=== PATIENT | female | born 1990 | race Caucasian/White ===

== ENCOUNTER 2019-06-12 13:26 | Emergency (ER) | payer MEDICAID ==
[~2019-06-12] VITALS: Ht 149.9 cm; Wt 50.1 kg
[2019-06-12 13:29] VITALS: BP 148/79
--- NOTE | 2019-06-12 13:37 | NUR ---
Note undone in EDM - 06/12/19 at 1346 by MED1 BIB SELF. AAO X4 C/O UNPROVOKED, CONTINUOUS, NON RADIATING MID CHEST PAIN, DIZZINESS, SOB 9/10 X 1 HR AGO. PT STATES THAT IT HAPPENED WHEN SHE WAS AT WORK AND SHE STARTED HAVING SOB. FULL CLEAR SPEECH. NO FACIAL ASYMMETRY. PT AMBULATED WITH STEADY GAIT. PMH: DENIES. MED RX: ZPACK ANTIBIOTIC THERAPY FOR THROAT INFECTION . PATIENT POSITIONED FOR COMFORT; HOB ELEVATED; BEDRAILS UP X1; BED DOWN. ER MADE AWARE OF PT STATUS.
--- NOTE | 2019-06-12 13:38 | NUR ---
PT AMBULATED TO BED 3 WITH STEADY GAIT. URINE CUP PROVIDED
--- NOTE | 2019-06-12 13:39 | NUR ---
PT AMBULATED TO THE BATHROOM WITH STEADY GAIT.
--- NOTE | 2019-06-12 13:41 | NUR ---
PT AMBULATED TO ROOM WITH STEADY GAIT. URINE SPECIMEN OBTAINED.
--- NOTE | 2019-06-12 13:42 | NUR ---
BIB SELF. AAO X4 C/O UNPROVOKED, CONTINUOUS, NON RADIATING MID CHEST PAIN, DIZZINESS, SOB 9/10 X 1 HR AGO. PT STATES THAT IT HAPPENED WHEN SHE WAS AT WORK AND SHE STARTED HAVING SOB. FULL CLEAR SPEECH. NO FACIAL ASYMMETRY. PT AMBULATED WITH STEADY GAIT. PMH: DENIES. MED RX: ZPACK ANTIBIOTIC THERAPY FOR THROAT INFECTION . PATIENT POSITIONED FOR COMFORT; HOB ELEVATED; BEDRAILS UP X1; BED DOWN. ER MD MADE AWARE OF PT STATUS.
--- NOTE | 2019-06-12 13:57 | NUR ---
Patient being evaluated by DR MALDONADO at bedside.
[2019-06-12] MEDS ORDERED: IBUPROFEN 600 MG TAB PO ONE (14:10)
[2019-06-12 14:37] LABS: BASOPHILS % (AUTO) 0.6 % (0.0-2.0); EOSINOPHILS % (AUTO) 0.3 % (0.0-4.0); HEMATOCRIT 41.6 % (36-48); HEMOGLOBIN 14.4 g/dL (12.0-16.0); LYMPHOCYTES # (AUTO) 1.8 K/uL (2.5-16.5); LYMPHOCYTES % (AUTO) 34.7 % (20.5-51.1); MEAN CORPUSCULAR HEMOGLOBIN 30 pg (27-31); MEAN CORPUSCULAR HGB CONC 35 g/dL (33-37); MEAN CORPUSCULAR VOLUME 87.8 fL (80-94); MONOCYTES # (AUTO) 0.3 K/uL (0.8-1.0); MONOCYTES % (AUTO) 5.4 % (1.7-9.3); PLATELET COUNT (AUTO) 203 K/uL (140-450); RED BLOOD CELL COUNT(AUTO) 4.74 MIL/uL (4.20-5.40); RED CELL DISTRIBUTION WIDTH 13.8 % (11.6-13.7); WHITE BLOOD COUNT (AUTO) 5.1 K/uL (4.8-10.8)
[2019-06-12 14:57] LABS: ANION GAP 16.3 (8-16); CARBON DIOXIDE 23.5 mmol/L (21-32); CREATININE 0.7 mg/dL (0.6-1.3); POTASSIUM 3.8 mmol/L (3.5-5.1)
[2019-06-12 16:47] VITALS: BP 108/70
== END 2019-06-12 16:47 | disposition home or self-care (01) ==
LOC: MED 13:26
DX: R07.89 Other chest pain (principal); R06.02 Shortness of breath; R42 Dizziness and giddiness
CPT/HCPCS: 36415; 71045; 80048; 81025; 84703; 85025; 85379; 93005; 99284; Q0092